=== PATIENT | female | born 1985 | race Caucasian/White ===

== ENCOUNTER 2019-09-11 04:18 | Emergency (ER) | payer BC ==
[~2019-09-11] VITALS: Ht 170.2 cm; Wt 73.8 kg
[2019-09-11] MEDS ORDERED: CYCLOBENZAPRINE10 M1 PO (06:45)
[2019-09-11] MEDS ORDERED: KETOROLAC10 MG PO (06:45)
[2019-09-11 06:47] VITALS: BP 112/75
== END 2019-09-11 06:58 | disposition home or self-care (01) ==
LOC: ED 04:18
DX: M54.12 Radiculopathy, cervical region (principal)
CPT/HCPCS: J1885; J2360

== ENCOUNTER 2021-04-02 21:30 | Emergency (ER) | payer BC ==
[~2021-04-02 21:30] MED LIST: CYCLOBENZAPRINE10 M1 PO; KETOROLAC10 MG PO
[2021-04-02 21:37] VITALS: BP 124/86
[2021-04-02] MEDS ORDERED: LEXAPRO 10MG10 MG PO (21:41)
[2021-04-02] MEDS ORDERED: BIRTH CONTROL (21:42)
== END 2021-04-02 22:43 | disposition home or self-care (01) ==
LOC: ED 21:30
DX: S91.115A Laceration without foreign body of left lesser toe(s) without damage to nail, initial encounter (principal); W01.0XXA Fall on same level from slipping, tripping and stumbling without subsequent striking against object, initial encounter; Y92.009 Unspecified place in unspecified non-institutional (private) residence as the place of occurrence of the external cause